=== PATIENT | female | born 1960 | race Caucasian/White ===

== ENCOUNTER → 2018-09-16 | Outpatient (CLI) | payer OTHER ==
[~2018-09-16] MED LIST: MELO7.5T29 PO; ORPH-16 PO; TRAM50TA PO
--- NOTE | 2018-09-16 14:50 | RAD ---
Right lower extremity venous doppler ultrasound Indication:Right leg swelling and pain for 2 weeks. Technique: Color Doppler, grayscale, and spectral waveform analysis is used to evaluate the right femoral and popliteal veins. Findings: No evidence of deep venous thrombosis. Normal response to augmentation, normal compressibility and normal phasicity is demonstrated. Visualized calf veins are patent. Impression: Negative for deep venous thrombosis Electronically signed by: Jordi Bean MD (09/16/2018 2:48 PM) [id number]
== END | disposition home or self-care (01) ==
LOC: US 13:41
PROVIDERS: ATTEND Family Medicine
DX: M79.604 Pain in right leg (principal)
CPT/HCPCS: 93971

== ENCOUNTER 2018-10-02 13:34 | Emergency (ER) | payer OTHER ==
[~2018-10-02] VITALS: Ht 162.6 cm; Wt 106.6 kg
[2018-10-02 13:34] VITALS: BP 129/88
[2018-10-02] MEDS ORDERED: KETOROLAC 15 MG/ML VIAL. IM ONE (14:00)
--- NOTE | 2018-10-02 14:00 | PHYS DOC ---
Past History Past Surgical History: Cholecystectomy, Smoking: Non-smoker Alcohol Use: None Drug Use: None Adult General Chief Complaint Chief Complaint: LOWER EXT PAIN HPI HPI Patient is a 57-year-old female presents with right leg and knee pain. This is been present for the past 6 months. Worse over the past several weeks after which she had images of her lumbar spine as well as ultrasound of her right lower extremity. Since that time she was walking and felt something tearing or pulling in her right knee. No fall. No specific trauma. No giving way in her knee. There is no numbness or tingling. Increased pain with movement. She is able to walk. She has run out of her pain medicines. No loss of bowel or bladder control. No fever.[] Review of Systems Review of Systems Constitutional: Denies fever or chills [] Eyes: Denies change in visual acuity, redness, or eye pain [] HENT: Denies nasal congestion or sore throat [] Respiratory: Denies cough or shortness of breath [] Cardiovascular: No chest pain or palpitations[] GI: Denies abdominal pain, nausea, vomiting, bloody stools or diarrhea [] : Denies dysuria or hematuria [] Musculoskeletal: Denies back pain, see history of present illness[] Integument: Denies rash or skin lesions [] Neurologic: Denies headache, focal weakness or sensory changes [] Endocrine: Denies polyuria or polydipsia [] All other systems were reviewed and found to be within normal limits, except as documented in this note. Allergies Allergies Allergies Coded Allergies Type Severity Reaction Last Updated Verified No Known Drug Allergies 10/02/18 No Physical Exam Physical Exam Constitutional: Well developed, well nourished, no acute distress, non-toxic appearance. [] HENT: Normocephalic, atraumatic, bilateral external ears normal, oropharynx moist, no oral exudates, nose normal. [] Eyes: PERRLA, EOMI, conjunctiva normal, no discharge. [] Neck: Normal range of motion, no tenderness, supple, no stridor. [] Cardiovascular:Heart rate regular rhythm, no murmur [] Lungs & Thorax: Bilateral breath sounds clear to auscultation [] Abdomen: Not examined. [] Skin: Warm, dry, no erythema, no rash. [] Back: No tenderness, no CVA tenderness. [] Extremities: Diffuse tenderness in the right lower extremity. Full active range of motion of the hip and knee and ankle. Patient is distally neurovascularly intact. Right Knee has no varus or valgus laxity, negative drawer, negative Walter test. A joint above and below the right knee were evaluated and were normal., no cyanosis, no clubbing, ROM intact, no edema. [] Neurologic: Alert and oriented X 3, normal motor function, normal sensory function, no focal deficits noted. [] Psychologic: Affect normal, judgement normal, mood normal. [] EKG EKG [] Radiology/Procedures Radiology/Procedures PROCEDURE: KNEE RIGHT 3V Three-view right knee study Clinical indications: Fall. Right knee pain. FINDINGS: No acute fracture or dislocation or lytic process is seen. 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 There is mild degenerative osteoarthritis of the lateral tibial femoral joint compartment. No significant knee joint effusion is seen. IMPRESSION: No acute osseous abnormality.[] Course & Med Decision Making Course & Med Decision Making Pertinent Labs and Imaging studies reviewed. (See chart for details) ED course: Patient arrived, was placed in bed, and tolerated exam well. She tolerated the x-rays with any complications. After return of the imaging findings, these were discussed with the patient, and all questions were answered. She was discharged in improved condition. Medical decision making: There is no evidence of a fracture or dislocation. Patient has had other imaging studies to include lumbar spine as well as vascular studies looking for other etiologies of this pain that is been waxing and waning over the past 6 months. She initially requested an MRI which is not a vailable at [facility] and do not believe that one is indicated urgently/emergently given the length of time the symptoms have been present.[] Dragon Disclaimer Dragon Disclaimer This electronic medical record was generated, in whole or in part, using a voice recognition dictation system. Departure Departure: Impression: Primary Impression: Pain of right lower extremity Disposition: 01 HOME, SELF-CARE Condition: IMPROVED Referrals: LOIS PEDERSEN DO (PCP) Follow-up in 2 days Patient Instructions: Musculoskeletal Pain Additional Instructions: Follow-up with your regular doctor in 2 days. Apply warm compresses to the affected area for 15 minutes at a time, at least 4 times a day. Return to the ER if worsening discomfort or any other concerns. Scripts Tramadol Hcl (TRAMADOL HCL) 50 Mg Tablet 50 MG PO PRN Q6HRS PRN for PAIN, #20 TAB Prov: CHRISSIE PACHECO DO 10/02/18 Orphenadrine Citrate (ORPHENADRINE CITRATE) 100 Mg Tablet.er 100 MG PO BID for BACK PAIN, #20 TAB.SR Prov: CHRISSIE PACHECO DO 10/02/18 Meloxicam (MELOXICAM) 7.5 Mg Tablet 7.5 MG PO DAILY for PAIN, #20 TAB Prov: CHRISSIE PACHECO DO 10/02/18 CHRISSIE PACHECO DO October 02, 2018 13:59
--- NOTE | 2018-10-02 14:51 | RAD ---
Three-view right knee study Clinical indications: Fall. Right knee pain. FINDINGS: No acute fracture or dislocation or lytic process is seen. 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 There is mild degenerative osteoarthritis of the lateral tibial femoral joint compartment. No significant knee joint effusion is seen. IMPRESSION: No acute osseous abnormality. Electronically signed by: Jason Lama MD (10/02/2018 2:48 PM) [facility]
[2018-10-02] MEDS ORDERED: MELO7.5T29 PO (15:01)
[2018-10-02] MEDS ORDERED: TRAM50TA PO (15:01)
[2018-10-02] MEDS ORDERED: ORPH-16 PO (15:01)
== END 2018-10-02 15:05 | disposition home or self-care (01) ==
LOC: ER 13:34
DX: M25.561 Pain in right knee (principal); M79.604 Pain in right leg
CPT/HCPCS: 73562; 96372; 99284; J1885